=== PATIENT | male | born 1930 | race Caucasian/White ===

== ENCOUNTER 2016-12-22 15:55 | Emergency (ER) | payer MEDICARE ==
[~2016-12-22] VITALS: Ht 182.9 cm; Wt 117.7 kg
[~2016-12-22 15:55] MED LIST: ACET-171 PO; ALBU2.5V4 IH; ATEN25TA PO; DOCU-41 PO; HYDR-4003 PO; IPRA4AER IH; LISI-609 PO; NITR0.4T SL; NPH,100V11 SUBQ; QUET25TA73 PO; SIMV40TA5 PO; WARF5TAB7 PO
[2016-12-22 15:58] VITALS: BP 112/75; PULSE 65; RESP 22; O2SAT 97
--- NOTE | 2016-12-22 16:18 | ED.REPORT ---
HPI-General Illness Date of Service Dec 22, 2016 ED Provider: Dick Martinez MD An 86 year old male with a history of CAD, diabetes, hypertension, atrial flutter, DVT, COPD, and stroke on Warfarin presents to the ED accompanied by his family with decreased appetite and reduced liquid intake onset one week ago. Associated symptoms include malaise, generalized weakness, reduced urination, and lethargy. He had a bout of cold-like symptoms three weeks ago, which have mostly resolved. The patient denies fever, cough, vomiting, constipation, or pain currently. Nursing Notes Stated Complaint: DEHYDRATED, NOT EATING/DRINKING Chief Complaint: General Complaint Nursing Notes Reviewed: Yes Allergies: Coded Allergies: Penicillins (Verified Allergy, Severe, 10/17/15) doxycycline (Verified Allergy, Severe, 10/17/15) Scheduled Albuterol/Ipratropium (Combivent Respimat Inhal [place]) 120 Spr/4 Gm Inhaler 1 PUFF IH BID Atenolol (Atenolol) 25 Mg Tablet 12.5 MG PO DAILY Lisinopril (Zestril) 5 Mg Tablet 2.5 MG PO DAILY NPH, Human Insulin Isophane (HUMulin-N U100 Insulin Vial) 100 Unit/1 Ml Vial 28 UNIT SUBQ BID-INSULIN Simvastatin (Simvastatin) 40 Mg Tablet 40 MG PO HS Warfarin Sodium (Warfarin Sodium) 5 Mg Tablet 5 MG PO ,,,,,[place] Warfarin Sodium (Warfarin Sodium) 5 Mg Tablet 7.5 MG PO Friday Scheduled PRN Acetaminophen (Acetaminophen) 500 Mg Tablet 500 MG PO Q4H PRN PRN For Pain Albuterol Neb Soln (Albuterol Neb Soln) 2.5 Mg/3 Ml Vial.neb 2.5 MG IH Q4 PRN PRN For Shortness of Breath Docusate Sodium (Colace) 100 Mg Capsule 100-200 MG PO BID PRN PRN For Constipation Hydrocodone-Acetaminophen 5-325 mg (Hydrocodone-Acetaminophen 5-325 mg) 1 Each Tablet 1-2 EACH PO Q4 PRN PRN For Pain Nitroglycerin SL (Nitrostat) 0.4 Mg Tab.subl 0.4 MG SL Q5MIN PRN PRN For Chest Pain Quetiapine Fumarate (Quetiapine Fumarate) 25 Mg Tablet 0.5-1 TAB PO HS PRN PRN Insomnia General Time Seen by MD: 16:17 Chief Complaint Other (Decreased Appetite and Reduced Liquid Intake) Hx Obtained From: Patient, Daughter Sudden in Onset?: No Onset Occurred: 1 week ago Symptom Duration: Since onset Severity: Current: No pain currently Severity: Maximum: No pain Associated with: Reports: Weakness, Denies: Cough, Fever, Vomiting Pertinent Negative: Relieved by nothing Recent Healthcare: No recent doctor visit Past Medical History Past Medical History 1. Coronary artery disease. 2. Diabetes. 3. Hypertension. 4. Hyperlipidemia. 5. Excess weight. 6. Chronic bronchitis. 7. Hard of hearing. 8. 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 9. Left frontal lobe meningioma. 10. Atrial flutter with chronic warfarin anticoagulation. 11. History of left leg DVT in June 2013. 12. History of basal cell cancers of the face. 13. History of poor dentition. 14. COPD Past Surgical History Total right knee replacement in 2009. Three-vessel CABG in 2007 Laparoscopic cholecystectomy Prior cataract surgery. Reports: Angioplasty, CABG Family History Mother is ; of asthma and heart disease. Smoking History Former Smoker Social History Lives alone, has caregiver come in Alcohol Use: "Social" Drug Use: Denies drug use Ambulatory Status Wheelchair Review of Systems + decreased appetite, reduced liquid intake - pain Full Review of Systems Constitutional: Reports: Lethargy, Malaise, Weakness - generalized, Denies: Fever Respiratory: Denies: Non-productive cough GI: Denies: Constipation, Vomiting Male: Reports Urination decreased Complete sys rev & neg: except as marked. Physical Exam Vital Signs Vital Signs Date Time Temp Pulse Resp B/P Pulse Ox O2 Delivery O2 Flow Rate FiO2 12/22/16 18:36 36.9 85 22 110/29 100 Room Air 12/22/16 17:48 60 14 106/49 96 Room Air 12/22/16 17:18 35.8 12/22/16 15:58 36.5 65 22 112/75 97 Room Air Head / Eyes: Atraumatic, Normocephalic Respiratory: Breath sounds normal, Clear to auscultation, No respiratory distress Abdomen / GI: Soft, Non-tender Skin: Warm, Dry, No cyanosis Neurologic: Alert, Oriented Psychiatric: Mood/affect normal, Behavior normal, Normal thought content General/Constitutional: Awake, Alert ENT: Airway patent Mouth: Positive: Mucous membranes dry Cardiovascular: Heart rate NL, Regular rhythm, Heart sounds NL Lower Ext Edema: Positive: Bilateral 2+ (Baseline) Interpretation & Diagnostics Lab Results Interpretation Result Diagram: 12/22/16 1700 12/22/16 1700 Test 12/22/16 16:30 12/22/16 17:00 12/22/16 17:14 Urine Color Yellow (YELLOW) Urine Appearance Clear (CLEAR,HAZY) Urine pH 5.0 (5.0-8.0) Urine Specific [place] 1.032 (1.003-1.035) Urine Protein Negativemg/dL (NEG,TRACE) Urine Glucose (UA) Negativemg/dL (NEGATIVE) Urine Ketones Negativemg/dL (NEGATIVE) Urine Occult Blood Negative (NEGATIVE) Urine Nitrite Negative (NEGATIVE) Urine Bilirubin Negative (NEGATIVE) Urine Urobilinogen Normalmg/dL (NORMAL) Urine Leukocyte Esterase Negative (NEGATIVE) Urine RBC 0-2/hpf (0-2) Urine WBC 0-5/hpf (0-5) Urine Epithelial Cells Few/hpf (NONE-MOD) Urine Crystals None seen (NONE SEEN) Urine Bacteria Few/hpf (NONE-FEW) Urine Hyaline Casts None/lpf (NONE) Urine Granular Casts None seen (NONE SEEN) Urine Waxy Casts None seen (NONE SEEN) Urine Red Blood Cell Casts None seen (NONE SEEN) Urine White Blood Cell Casts None seen (NONE SEEN) Urine Mucus Present (None Seen) Urine Trichomonas None seen (NONE SEEN) Urine Yeast None (NONE SEEN) Urinalysis Comment None Urine Culture Reflexed Not indicated White Blood Count 5.9th/mm3 (3.8-10.1) Red Blood Count 4.98mil/mm3 (4.40-5.80) Hemoglobin 14.5g/dL (13.8-17.2) Hematocrit 43.2% (41.0-50.0) Mean Corpuscular Volume 86.7fL (81-100) Mean Corpuscular Hemoglobin 29.1pg (27.0-35.0) Mean Corpuscular Hemoglobin Concent 33.6% (32.0-37.0) Red Cell Distribution Width 14.4% (12.3-15.4) Platelet Count 150bil/L (150-400) Neutrophils (%) (Auto) 62.2% (40-74) Lymphocytes (%) (Auto) 27.0% (14-46) Monocytes (%) (Auto) 7.8% (4-12) Eosinophils (%) (Auto) 2.6% (0-5) Basophils (%) (Auto) 0.2% (0-3) Sodium Level 142mEq/L (134-144) Potassium Level 4.5mEq/L (3.5-5.2) Chloride Level 105mEq/L (97-108) Carbon Dioxide Level 22mmol/L (18-29) Blood Urea Nitrogen 15mg/dL (8-27) Creatinine 0.97mg/dL (0.76-1.27) Estimat Glomerular Filtration Rate 78mL/min (>59) Glucose Level 138mg/dL (60-99) Calcium Level 8.3mg/dL (8.5-10.1) Total Bilirubin 0.6mg/dL (0.0-1.2) Aspartate Amino Transf (AST/SGOT) 34U/L (0-50) Alanine Aminotransferase (ALT/SGPT) 21U/L (0-44) Alkaline Phosphatase 84U/L (25-160) Total Protein 6.6g/dL (6.4-8.4) Albumin 3.3g/dL (3.4-5.0) Hold Kirby Top Tube Received (Received) X-Ray Chest Interpretation Chest Xray Interpretation: IMPRESSION: No acute cardiopulmonary disease. Dictated by: Kevan Grullon M.D. on 12/22/2016 at 16:45 View: Portable, 1 view Interpretation / Wet Read by: Interpret - Radiologist Re-Eval/Medical Decision Source of Hx: Old records Time of Eval: 19:29 Patient Status: Condition improved Re-Evaluation/Progress Note: Discussed with patient and his family x-ray and lab results, diagnosis, and plan for discharge. Follow-up and return to the ER instructions given. Patient and his family agree with plan for care and all questions were addressed. Counseled Regarding: Diagnosis, Lab results, Need for follow-up, When/why to return to ED Discharge & Departure Primary Impression: Generalized weakness Additional Impression: Decreased appetite Disposition: Home Discharge Condition All VS Reviewed: Yes Condition: Stable Additional Instructions: Thank you for entrusting us with your care. Your laboratory tests and chest x-ray were normal. Call your primary care provider tomorrow morning for a follow-up appointment. Return to the ER with any new or worsening symptoms. Referrals: Robel Thao MD (PCP) [place] Attestation Portions of this note were transcribed by Mackenzie Sands. I, Dr. Martinez, personally performed the history, physical exam, and medical decision-making; I reviewed and confirmed the accuracy of the information in the transcribed note. Signed by: Brandee Horan, 12/22/2016, 19:34 copies to: Robel Thoa MD, Kirk H MD Dec 22, 2016 16:18 MACKENZIE SANDS Dec 22, 2016 16:26 MACKENZIE SANDS Dec 22, 2016 16:26
[2016-12-22] MEDS ORDERED: 0.9% Sodium Chloride 1,000 ML IV ONE (16:40)
--- NOTE | 2016-12-22 16:47 | DRSVH ---
PROCEDURE: X-RAY CHEST ONE VIEW, PORTABLE ([id number]) INDICATIONS: 86-year-old male with altered level of consciousness. TECHNIQUE: One view of the chest was acquired. COMPARISON: [facility], CR, XR CHEST 2VW, 10/02/2015, 16:48. [facility], C R, XR CHEST 1VW (PORTABLE), 09/27/2015, 22:37. [facility], CR, CHEST 2VW, 03/30/2015, 13 :25. FINDINGS: Surgical changes and devices: Patient is status post coronary artery bypass grafting. Lungs and pleura: No pleural effusions or pneumothorax. Lungs are clear. Mediastinum: Mediastinal contours appear normal. Heart size is normal. Bones and chest wall: No suspicious bony lesions. Overlying soft tissues appear unremarkable. IMPRESSION: No acute cardiopulmonary disease. Dictated by: Kevan Grullon M.D. on 12/22/2016 at 16:45 Approved by: Kevan Grullon M.D. on 12/22/2016 at 16:46
[2016-12-22 17:16] LABS: BASOPHILS % (AUTO) 0.2 % (0-3); EOSINOPHILS % (AUTO) 2.6 % (0-5); MONOCYTES % (AUTO) 7.8 % (4-12); Mean Corpuscular Hemoglobin 29.1 pg (27.0-35.0); Mean Corpuscular Volume 86.7 fL (81-100); NEUTROPHILS % (AUTO) 62.2 % (40-74); Platelet Count 150 bil/L (150-400)
[2016-12-22 17:48] VITALS: BP 106/49; PULSE 60; RESP 14; O2SAT 96
[2016-12-22 18:36] VITALS: BP 110/29; PULSE 85; RESP 22; O2SAT 100
[2016-12-22 19:00] LABS: APPEARANCE,URINE CLEAR (CLEAR,HAZY); COLOR,URINE YELLOW (YELLOW); OCCULT BLOOD,URINE NEGATIVE (NEGATIVE); UROBILINOGEN,URINE NORMAL (NORMAL)
== END 2016-12-22 19:46 | disposition home or self-care (01) ==
LOC: SED 15:55
DX: R53.1 Weakness (principal); R63.0 Anorexia; I25.10 Atherosclerotic heart disease of native coronary artery without angina pectoris; E11.9 Type 2 diabetes mellitus without complications; I10 Essential (primary) hypertension; E78.5 Hyperlipidemia, unspecified; I69.398 Other sequelae of cerebral infarction; J44.9 Chronic obstructive pulmonary disease, unspecified; I48.92 Unspecified atrial flutter; Z86.718 Personal history of other venous thrombosis and embolism; Z95.1 Presence of aortocoronary bypass graft; Z87.891 Personal history of nicotine dependence; Z79.4 Long term (current) use of insulin; Z79.01 Long term (current) use of anticoagulants; Z88.0 Allergy status to penicillin; Z88.1 Allergy status to other antibiotic agents
CPT/HCPCS: 36415; 71010; 80053; 81000; 85025; 96360; 99284; J7030

== ENCOUNTER 2017-06-19 13:10 | Inpatient (IN) | payer MEDICARE ==
[~2017-06-19] VITALS: Ht 182.9 cm; Wt 115.6 kg
[2017-06-19 13:12] VITALS: BP 139/72; PULSE 49; RESP 15; O2SAT 95
[2017-06-19 13:50] LABS: BASOPHILS % (AUTO) 0.2 % (0-3); EOSINOPHILS % (AUTO) 2.7 % (0-5); MONOCYTES % (AUTO) 7.3 % (4-12); Mean Corpuscular Hemoglobin 28.7 pg (27.0-35.0); Mean Corpuscular Volume 88.2 fL (81-100); NEUTROPHILS % (AUTO) 63.5 % (40-74); Platelet Count 142 bil/L (150-400)
[2017-06-19 14:02] LABS: TROPONIN T 0.034 ug/L (0.0-0.011)
[2017-06-19 14:05] LABS: INR 1.94 ratio
--- NOTE | 2017-06-19 14:09 | ED.REPORT ---
HPI-Chest Pain 40 and Over Date of Service Jun 19, 2017 ED Provider: Danay Jones MD Patient is a 86-year-old male with coronary artery disease, hypertension, diabetes mellitus, COPD, atrial fib/flutter with a previous DVT and stroke on warfarin who presents from his doctor's office after acute onset chest pain at rest this morning at approximately 11:15. He had left sided sharp pain that did not radiate to the left side of his chest he took 2 nitroglycerin tablets approximately 5 minutes apart after which his chest pain resolved. He had a similar episode approximately 2 months ago that also resolved with 2 nitroglycerin. He did not go to the emergency department at that time. He has had no associated shortness of breath, or headache. His caregiver reports that he has been quite tired over the last few months and that he has had some bowel incontinence however no recent weight loss. Patient's medications per caregiver report only consist of atenolol, warfarin, and furosemide. Nursing Notes Stated Complaint: CHEST PAIN Chief Complaint: Chest Pain Nursing Notes Reviewed: Yes Allergies: Coded Allergies: Penicillins (Verified Allergy, Severe, 10/17/15) doxycycline (Verified Allergy, Severe, 10/17/15) Scheduled Albuterol/Ipratropium (Combivent Respimat Inhal [place]) 120 Spr/4 Gm Inhaler 1 PUFF IH BID Atenolol (Atenolol) 25 Mg Tablet 12.5 MG PO DAILY Lisinopril (Zestril) 5 Mg Tablet 2.5 MG PO DAILY NPH, Human Insulin Isophane (HUMulin-N U100 Insulin Vial) 100 Unit/1 Ml Vial 28 UNIT SUBQ BID-INSULIN Simvastatin (Simvastatin) 40 Mg Tablet 40 MG PO HS Warfarin Sodium (Warfarin Sodium) 5 Mg Tablet 5 MG PO [place], [place], , , Sa Warfarin Sodium (Warfarin Sodium) 5 Mg Tablet 2.5 MG PO , Scheduled PRN Acetaminophen (Acetaminophen) 500 Mg Tablet 500 MG PO Q4H PRN PRN For Pain Albuterol Neb Soln (Albuterol Neb Soln) 2.5 Mg/3 Ml Vial.neb 2.5 MG IH Q4 PRN PRN For Shortness of Breath Docusate Sodium (Colace) 100 Mg Capsule 100-200 MG PO BID PRN PRN For Constipation Hydrocodone-Acetaminophen 5-325 mg (Hydrocodone-Acetaminophen 5-325 mg) 1 Each Tablet 1-2 EACH PO Q4 PRN PRN For Pain Nitroglycerin SL (Nitrostat) 0.4 Mg Tab.subl 0.4 MG SL Q5MIN PRN PRN For Chest Pain Quetiapine Fumarate (Quetiapine Fumarate) 25 Mg Tablet 0.5-1 TAB PO HS PRN PRN Insomnia General Time Seen by MD: 13:30 Transferred From: Private physician office (Robel Thao) Chief Complaint Chest pain Hx Obtained From: Patient, Flight Line Mechanic Arrived By: Walk-in Sudden in Onset?: Yes Onset Occurred: 1 - 4 hours ago Context of Onset: At rest Symptom Duration: 1 - 15 minutes (Resolved with 2 doses SL Nitroglycerine) Risk Factors Well's Criteria for PE Well's PE Score: 0-2 pts (low risk 3.6%) Past Medical History Past Medical History 1. Coronary artery disease. 2. Diabetes. 3. Hypertension. 4. Hyperlipidemia. 5. Excess weight. 6. Chronic bronchitis. 7. Hard of hearing. 8. 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 9. Left frontal lobe meningioma. 10. Atrial flutter with chronic warfarin anticoagulation. 11. History of left leg DVT in June 2013. 12. History of basal cell cancers of the face. 13. History of poor dentition. 14. COPD Past Surgical History Total right knee replacement in 2009. Three-vessel CABG in 2007 Laparoscopic cholecystectomy Prior cataract surgery. Reports: Angioplasty Family History Mother is ; of asthma and heart disease. Smoking History Former Smoker Social History Has caregiver come in Alcohol Use: "Social" Drug Use: Denies drug use Ambulatory Status Wheelchair Review of Systems A comprehensive review of systems was conducted with the patient and found to be negative except as above in the History of Present Illness. Physical Exam Initial Vital Signs Vital Signs (First) Date Time Temp Pulse Resp B/P Pulse Ox O2 Delivery O2 Flow Rate FiO2 06/19/17 13:12 36 49 15 139/72 95 Room Air Initial VS: Reviewed, Vital signs abnormal (bradycardic) Head / Eyes: Atraumatic, Normocephalic ENT: Mucous membranes moist Neck: Supple Lymphatic: No lymphadenopathy Extremities: No swelling (compression stocking on left leg), No tenderness Skin: Warm, Dry, No cyanosis Neurologic: Alert, Oriented, Nonfocal Psychiatric: Mood/affect normal, Behavior normal, Normal thought content General/Constitutional: Awake, Alert, No acute distress, Well developed Respiratory / Chest: Breath sounds NL, Breath sounds = bilat, No respiratory distress, No rales, No rhonchi, No wheezing, No chest tenderness Cardiovascular: No murmurs Heart Rate / Rhythm: Positive: Bradycardia Abdomen: Atraumatic, Soft, Non-tender, No guarding, No rebound Interpretation & Diagnostics Lab Results Interpretation Result Diagram: 06/20/17 0530 06/20/17 0530 Test 06/19/17 13:33 Prothrombin Time 21.0sec (8.1-12.5) Prothromb Time International Ratio 1.94ratio Magnesium Level 2.0mg/dL (1.6-2.6) Total Bilirubin 0.4mg/dL (0.0-1.2) Aspartate Amino Transf (AST/SGOT) 19U/L (0-50) Alanine Aminotransferase (ALT/SGPT) 12U/L (0-44) Alkaline Phosphatase 111U/L (25-160) Total Protein 7.4g/dL (6.4-8.4) Albumin 3.8g/dL (3.4-5.0) Lab Results Interpretation: Troponin elevated to 0.034 ECG Interpretation ECG Interpretation: Atrial fibrillation at a rate of [address] changes Similar to EKG from October 17, 2015. Time: 13:23 X-Ray Chest Interpretation Chest Xray Interpretation: Persistent small bilateral pleural effusions with medial right basilar atelectasis or consolidation View: Portable Interpretation / Wet Read by: Interpret - Radiologist Re-Eval/Medical Decision Med Decision/Clinical Course Patient is a 86-year-old male with coronary artery disease, hypertension, diabetes mellitus, COPD, atrial fib/flutter with a previous DVT and stroke on warfarin who presents from his doctor's office after acute onset chest pain at rest this morning at approximately 11:15. His chest pain resolved with 2 doses of nitroglycerin and has not returned. EKG shows atrial fibrillation at a rate of 48, otherwise no ST changes and is grossly unchanged from ECG a year and a half ago. Laboratory evaluation reveals elevated troponin at 0.036. This is historically the highest he has been. Patient's lab results and need for admission were discussed with patient and caregiver. Cardiology was consulted and recommended heparin drip and trending of troponin. Patient is DNR/DNI per discussion today. Consultation #1: Referral / Consult Name: Renetta Rayo MD Consulted With: Cardiology Requested Call at: 14:37 Call Returned at: 14:42 [place]: Will see patient, Agrees with eval, Agrees with plan Note: Recommend starting heparin drip and trending troponin. Consultation #2: Referral / Consult Name: Ray Gandhi MD Consulted With: Hospitalist Requested Call at: 14:45 Call Returned at: 14:50 [place]: Will see patient, Agrees with eval, Agrees with plan, Accepts admit Counseled Regarding: Diagnosis, Lab results, Need for admission Discharge & Departure Shift Change Sign-Out Response to Therapy: Unchanged Primary Impression: NSTEMI (non-ST elevated myocardial infarction) Disposition: ADMITTED TO HOSPITAL Discharge Condition All VS Reviewed: Yes Condition: Stable Referrals: Robel Thao MD (PCP) Attending Statement Patient seen and examined with Dr. Schmitt Episode of chest pain this morning resolved with 2 nitroglycerin. History of atherosclerotic disease and previous interventions. Initial troponin is positive. No acute ST changes on his EKG which is showing baseline A. fib with a slow rate. INR is 2. Consultation with cardiology recommended starting heparin drip. Will be admitted for additional evaluation, primary care physician is notified of admit Agree documentation and exam as above copies to: Robel Thao MD, Erika R DO Jun 19, 2017 14:09 Danay Jones MD Jun 20, 2017 09:05 (6.4-8.4) Albumin 3.8g/dL (3.4-5.0) Lab Results Interpretation: Troponin elevated to 0.034 ECG Interpretation ECG Interpretation: Atrial fibrillation at a rate of [address] changes Similar to EKG from October 17, 2015. Time: 13:23 X-Ray Chest Interpretation Chest Xray Interpretation: Persistent small bilateral pleural effusions with medial right basilar atelectasis or consolidation View: Portable Interpretation / Wet Read by: Interpret - Radiologist Re-Eval/Medical Decision Med Decision/Clinical Course Patient is a 86-year-old male with coronary artery disease, hypertension, diabetes mellitus, COPD, atrial fib/flutter with a previous DVT and stroke on warfarin who presents from his doctor's office after acute onset chest pain at rest this morning at approximately 11:15. His chest pain resolved with 2 doses of nitroglycerin and has not returned. EKG shows atrial fibrillation at a rate of 48, otherwise no ST changes and is grossly unchanged from ECG a year and a half ago. Laboratory evaluation reveals elevated troponin at 0.036. This is historically the highest he has been. Patient's lab results and need for admission were discussed with patient and caregiver. Cardiology was consulted and recommended heparin drip and trending of troponin. Patient is DNR/DNI per discussion today. Consultation #1: Referral / Consult Name: Renetta Rayo MD Consulted With: Cardiology Requested Call at: 14:37 Call Returned at: 14:42 [place]: Will see patient, Agrees with eval, Agrees with plan Note: Recommend starting heparin drip and trending troponin. Consultation #2: Referral / Consult Name: Ray Gandhi MD Consulted With: Hospitalist Requested Call at: 14:45 Call Returned at: 14:50 [place]: Will see patient, Agrees with eval, Agrees with plan, Accepts admit Counseled Regarding: Diagnosis, Lab results, Need for admission Discharge & Departure Shift Change Sign-Out Response to Therapy: Unchanged Primary Impression: NSTEMI (non-ST elevated myocardial infarction) Disposition: ADMITTED TO HOSPITAL Discharge Condition All VS Reviewed: Yes Condition: Stable Referrals: Robel Thao MD (PCP) copies to: Robel Thao MD, Erika R DO Jun 19, 2017 14:09
--- NOTE | 2017-06-19 14:42 | DRSVH ---
PROCEDURE: X-RAY CHEST ONE VIEW, PORTABLE ([id number]) INDICATIONS: Chest pain TECHNIQUE: One view of the chest was acquired. COMPARISON: [facility], CR, XR CHEST 1VW (PORTABLE), 12/22/2016, 16:30. FINDINGS: Surgical changes and devices: Postsurgical changes are redemonstrated in the mediastinum. Lungs and pleura: There are small bilateral pleural effusions with medial right basilar compressive a telectasis or consolidation. Mediastinum: Mediastinal contours appear unchanged. Heart size is at upper limits of normal. Bones and chest wall: No suspicious bony lesions. Overlying soft tissues appear unremarkable. IMPRESSION: 1. Persistent small bilateral pleural effusions with medial right basilar atelectasis or consolidati on. Dictated by: Chaka Jones M.D. on 06/19/2017 at 14:39 Approved by: Chaka Jones M.D. on 06/19/2017 at 14:41
[2017-06-19] MEDS ORDERED: Heparin 5,000 Unit/mL Inj IVPUSH ONE (14:55)
[2017-06-19] MEDS ORDERED: Heparin 25K Unit/500mL 0.45 NS 25,000 UNIT in IV Premix 1 EACH IV ONE (14:55)
[2017-06-19 15:30] VITALS: BP 136/73; PULSE 61; RESP 20; O2SAT 95
[2017-06-19] MEDS ORDERED: Polyethylene Glycol (PEG) 17 Gm Powder PO PRN (15:30)
[2017-06-19] MEDS ORDERED: Alum-Mag Hydrox-Simeth 30 mL Suspension PO PRN (15:30)
[2017-06-19] MEDS ORDERED: Ondansetron 2 mg/mL 2 mL Inj IVPUSH PRN (15:30)
--- NOTE | 2017-06-19 16:19 | PCM.HPMED ---
Subjective Date of Service Jun 19, 2017 Primary Provider: Admitting Physician: Ray Gandhi MD Primary Care Physician: Robel Thao MD Attending Physician: Ray Gandhi MD Chief Complaint: Chest pain History of Present Illness: From ER, EMR and patient: Patient is a 86-year-old male with coronary artery disease, hypertension, diabetes mellitus, COPD, atrial fib/flutter with a previous DVT and stroke on warfarin who presents from his doctor's office after acute onset chest pain at rest this morning at approximately 11:15. He had left sided sharp pain that did not radiate to the left side of his chest he took 2 nitroglycerin tablets approximately 5 minutes apart after which his chest pain resolved. He had a similar episode approximately 2 months ago that also resolved with 2 nitroglycerin. He did not go to the emergency department at that time. He has had no associated shortness of breath, or headache. His caregiver reports that he has been quite tired over the last few months and that he has had some bowel incontinence however no recent weight loss. When asked about previous history of CAD, he does not remember every having a cardiac cath. Denies any other symptoms at this time. . Allergies Coded Allergies: Penicillins (Verified Allergy, Severe, 10/17/15) doxycycline (Verified Allergy, Severe, 10/17/15) Constitutional: No: Chills, Fever, Malaise, Other, Sweats, Weakness Cardiovascular: Reports: Chest Pain Respiratory: Denies: Cough, Hemoptysis, Other, Pleuritic Chest Pain, SOB with Exertion, Shortness of Breath, Sputum, Wheezing Gastrointestinal: Denies: Abdominal Pain, Change in Appetite, Constipation, Diarrhea, Heartburn, Hematochezia, Melena, Nausea, Other, Use of Laxatives, Vomiting Genitourinary: Denies: Anuria, Change in Frequency, Dysuria, Hematuria, Incontinence, Nocturia, Other, Retention Musculoskeletal: Denies: Back Pain, Deformity, Limitation of Function, Neck Pain, Other, Redness, Shoulder Pain, Swelling Skin: Denies: Bruising, Dry or Flakiness, Jaundice, Lesions, Other, Rash, Scars , Ulcers Neurological: Denies: Change in Speech, Confusion, Dizziness, Dyskinesia, Hyper Reflexia, Incoordination, Numbness, Other, Seizures, Somnolence, Tremors, Weakness Psychologic: Denies: Agitation, Disorientation, Excitation, Giddiness, Hostile , Insomnia, Instability, Laquita, Nervousness, Night Terrors, Other, Perseveration , Phobia, Sexual Disturbances Endocrine: Denies: Change in Appitite, Diaphoresis, Intolerent to Heat/Cold, Polydipsea, Polyuria PMH 1. Coronary artery disease. 2. Diabetes. 3. Hypertension. 4. Hyperlipidemia. 5. Excess weight. 6. Chronic bronchitis. 7. Hard of hearing. 8. 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 9. Left frontal lobe meningioma. 10. Atrial flutter with chronic warfarin anticoagulation. 11. History of left leg DVT in June 2013. 12. History of basal cell cancers of the face. 13. History of poor dentition. 14. COPD Surgical History Total right knee replacement in 2009. Three-vessel CABG in 2007 Laparoscopic cholecystectomy Prior cataract surgery. Reports: Angioplasty Social History Hx Alcohol Use: No Hx Substance Use: No Hx Tobacco Use: Yes Smoking Status: Former Smoker Exam Vital Signs Vital Sign - Last Date Time Temp Pulse Resp B/P Pulse Ox O2 Delivery O2 Flow Rate FiO2 06/19/17 13:12 36 49 15 139/72 95 Room Air Lab and Diagnostics Result Diagram: 06/19/17 1333 06/19/17 1333 Assessment & Plan Chest pain - concerns for NSTEMI - will trend trops - on heparin, EKG without any significant changes - Cardiology on consult, appreciate recs Afib /Aflutter - on warfarin at home - INR 1.9 here - on heparin drip, will hold warfarin for now Diabetes - on insulin at home - will continue home insulin with sliding scale Chronic Bronchitis (COPD) - as per mesh cutter, gets neb treatment 1 -2 times a day, and uses escape inhaler once a day - continue nebs and albuterol inhaler HTN - as per caregiver, he usually runs low at home - will monitor bp here, and adjust medications accordingly Chronic problems Hyperlipidemia. Excess weight. Hard of hearing. 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 Left frontal lobe meningioma. History of left leg DVT in June 2013. History of basal cell cancers of the face. History of poor dentition. Pain Evaluation: Adequate Pain Control VTE Prophylaxis: Other (on heparin drip ) Time spent 55 mins Attending Statement Admitted to in patient service with expected length of stay greater than 2 days , secondary to severity of presenting symptoms, treatment plan, complexity of clinical work up, and risk of adverse events. Ray Gandhi MD Jun 19, 2017 16:19
[2017-06-19 16:48] VITALS: BP 136/73; PULSE 61; RESP 20; O2SAT 95
[2017-06-19 17:10] VITALS: PULSE 61
[2017-06-19] MEDS ORDERED: Glucose 40% Oral Gel 15 Gm Tube PO PRN (17:10)
[2017-06-19 17:30] VITALS: BP 111/62; PULSE 60; RESP 22; O2SAT 97
[2017-06-19] MEDS: Insulin LISPRO 300 Unit/3 mL Inj SUBQ SCH ×2 (17:30→22:00)
[2017-06-19] MEDS ORDERED: HYDROcodone-APAP 5-325 mg Tablet PO PRN (17:40)
[2017-06-19] MEDS ORDERED: Heparin 25K Unit/500mL 0.45 NS 25,000 UNIT in IV Premix 1 EACH IV SCH (17:45)
[2017-06-19] MEDS ORDERED: Heparin 5,000 Unit/mL Inj IVPUSH PRN (17:45)
--- NOTE | 2017-06-19 17:45 | NUR ---
ADMIT TO [facility] [place] Report received from Katrin Quinn RN in ED. Pt brought onto floor around 1700 via personal WC. Pt 2P max assist to bed. Partially able to bear weight but very weak. Continuing 2P max assist with bedrest for most and Q2H turns/heels floated. Admission interventions mostly completed, pt not good historian, and animal caretaker supervisor able to answer a few questions. Next shift to F/U when family is in the room for MED REC and Allergies. Heparin drip continuing to run, started in ED. Board updated, pt instructed about plan of care. Pt denies pain and SOB but visibly apparent pt is SOB at rest. Does report using CPAP at home. Will place CPOX for sleeping. Pt has recent falls last week, bed alarm on, urinal in room for needs. Addendum: 06/19/17 at 1850 by MADHAVI ESPINAL RN MED REC verified with family. Family reports to have several allergies to antibiotics. Leaving Allergies as listed.
[2017-06-19] MEDS ORDERED: Albuterol 2.5 mg/3 mL Inhalation Solution NEB PRN (18:46)
[2017-06-19 20:14] VITALS: BP 116/68; PULSE 74; RESP 20; O2SAT 96
[2017-06-19] MEDS ORDERED: Albuterol-Ipratropium 3 mL Inhalation Solution NEB SCH (20:30)
[2017-06-19] MEDS ORDERED: Insulin Human NPH 100 Unit/mL 3 mL Inj SUBQ SCH (21:00)
[2017-06-20] VITALS (9 sets, daily range): BP systolic 116–124; BP diastolic 72–85; PULSE 57–74; RESP 16–22; O2SAT 95–97
--- NOTE | 2017-06-20 00:01 | NUR ---
Insulin NPH Pt took Insulin NPH 28 unit BID at home, ordered continue by admit , Pharmacist has questions about NPH order that she wanted to talk with night hospitalist Dr. Wade. Phamacist and RN both paged . Dr. Wade called back and talked with pharmacy and stated she will pass to day hospitalist to take care of it (per pharmacy note under NPH order).
[2017-06-20 04:53] LABS: APPEARANCE,URINE CLEAR (CLEAR,HAZY); COLOR,URINE YELLOW (YELLOW); OCCULT BLOOD,URINE NEGATIVE (NEGATIVE); UROBILINOGEN,URINE NORMAL (NORMAL)
[2017-06-20 05:48] LABS: BASOPHILS % (AUTO) 0.2 % (0-3); EOSINOPHILS % (AUTO) 3.5 % (0-5); MONOCYTES % (AUTO) 9.3 % (4-12); Mean Corpuscular Hemoglobin 28.9 pg (27.0-35.0); Mean Corpuscular Volume 87.7 fL (81-100); NEUTROPHILS % (AUTO) 54.6 % (40-74); Platelet Count 117 bil/L (150-400)
--- NOTE | 2017-06-20 07:26 | NUR ---
Uneventful Night Pt denies any pain or chest pressure,nausea,fever, chills,some SOB with turning. VSS. Heparin drip running, no active bleeding noted. Alert and oriented. Pt kept NPO after MN for possible heart cath or Stress test per day shift report. Last caffeine around 0800 06/19/2017 per pt.
[2017-06-20] MEDS: Insulin LISPRO 300 Unit/3 mL Inj SUBQ SCH ×4 (08:00→22:00)
--- NOTE | 2017-06-20 08:22 | PCM.PNMED ---
Subjective Date of Service Jun 20, 2017 Subjective Patient seen and examined. He says he doing fine. No chest pain. Vitals stable. Exam Vital Signs Vital Sign - Last Date Time Temp Pulse Resp B/P Pulse Ox O2 Delivery O2 Flow Rate FiO2 06/20/17 04:54 61 06/20/17 04:49 36.7 22 116/72 97 Room Air Intake and Output 06/19/17 06/19/17 06/20/17 Cumulative From/Thru 15:00 23:00 07:00 06/19/17 13:12 - 06/20/17 06:36 Intake Total 209 ml 209 ml Output Total 300 ml 300 ml Balance -91 ml -91 ml Intake Oral 0 ml 0 ml IV Total 209 ml 209 ml Output Urine Total 300 ml 300 ml # Voids 1 1 Exam Head / Eyes: Atraumatic, Normocephalic Extremities: Swelling L > R (compression stocking on left leg), No tenderness Skin: Warm, Dry, No cyanosis Neurologic: Alert, Oriented, Nonfocal Psychiatric: Mood/affect normal, Behavior normal, Normal thought content Respiratory / Chest: Breath sounds NL, Breath sounds = bilat, No respiratory distress, No rales, No rhonchi, No wheezing, No chest tenderness Cardiovascular: No murmurs, irregular beat Heart Rate / Rhythm: Positive: Bradycardia Abdomen: Atraumatic, Soft, Non-tender, No guarding, No rebound Lab and Diagnostics Result Diagram: 06/20/17 0530 06/20/17 0530 Assessment & Plan Chest pain - concerns for NSTEMI vs PE - troponins stabilized - on heparin, EKG without any significant changes - Cardiology on consult, recs: CTPE, lasix 40 BID, Metoprolol XL, Aspirin, Statin, restart coumadin to optimize INR 2-3 , medical management, discussed with dr. Castrejon , appreciate recs Afib /Aflutter - on warfarin at home - INR 1.9 here - on heparin drip, warfarin restarted Lower extremity swelling - L > R - compression stockings in place - no pain, worsens when patient sits for long time - Lasix + anticoagulation Diabetes - on insulin at home - will continue home insulin with sliding scale - hold morning dose today as patient's glucose low and he is npo Chronic Bronchitis (COPD) - as per aquatic biologist, gets neb treatment 1 -2 times a day, and uses escape inhaler once a day - continue nebs and albuterol inhaler HTN - as per caregiver, he usually runs low at home - will monitor bp here, and adjust medications accordingly Chronic problems Hyperlipidemia. Excess weight. Hard of hearing. 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 Left frontal lobe meningioma. History of left leg DVT in June 2013. History of basal cell cancers of the face. History of poor dentition VTE Prophylaxis: Other (on heparin drip ) VTE Mechanical Devices: Intermittant Pneumatic CD, Anti-Embolic stockings Time spent 35 mins Ray Gandhi MD Jun 20, 2017 08:22 Ray Gandhi MD Jun 20, 2017 08:22
--- NOTE | 2017-06-20 11:37 | DRSVH ---
[facility] [address] [place] [address] Echocardiogram Report Name: ROBINSON ROSAS te: 06/20/2017 Height: 72 in Hospital Exam Location: [facility] Weight: 268 lb Gender: Male BSA: 2.4 m2 : 1930 Age: 86 yrs BP: 116/72 mmHg Reason For Study: Chest pain History: CAD Ordering Physician: [facility] Performed By: Joyce Bobo Referring Physician: Dr. Robel Thao Interpretation Summary The left ventricle is normal in size. The ejection fraction is estimated to be 60-65%. The right ventricle is mildly dilated. Right ventricular systolic function is moderate to severely reduced.Right ventricular systolic function has decreased since previous exam. There is mild to moderate tricuspid regurgitation. Compared to the prior echo exam, there has been an increase in TR severity. The right ventricular systolic pressure is estimated at 46 mmHg assuming a right atrial pressure of 15 mm Hg. Compared to the prior echo exam, there has been an increase in the severity of pulmonary hypertension. There is mild to moderate mitral regurgitation. Compared to the prior echo study, there has been an increase in the severity of mitral regurgitation. The aortic valve is not well visualized. Leaflet mobility is severely reduced. The peak aortic velocity is 1.5 m/sec. The peak aortic velocity on the previous exam was 1.37 m/sec (The peak AV velocity and mean gradient does not support severe however morphologically aortic valve cusps appears to have significantly reduced mobility). Consider ELA for better evaluation of AV. Procedure: A two-dimensional transthoracic echocardiogram with color flow and Doppler was performed. The study quality was technically adequate. A contrast injection of Definity was performed to improve assessment of LV function. Comparison is made with the echocardiogram of 07/22/2014. The patient was in atrial fibrillation with heart rates between 47-68 bpm during the exam. Left Ventricle: There is moderate concentric left ventricular hypertrophy. The left ventricle is normal in size. Proximal septal thickening is noted. There is no echo evidence for significant left ventricular outflow tract obstruction. There is no thrombus. The ejection fraction is estimated to be 60-65%. There is a mild dyssynchronous contraction pattern, consistent with a conduction abnormality. Diastolic function could not be accurately assessed due to atrial fibrillation. Right Ventricle: The right ventricle is not well visualized. The right ventricle is mildly dilated. Right ventricular systolic function is moderate to severely reduced. Right ventricular systolic function has decreased since previous exam. Atria: The left atrium is severely dilated. The left atrium has mildly increased in size since the prior echo exam. The right atrium is moderately dilated. The right atrium has mildly increased in size since the prior echo exam. There is no Doppler evidence for an interatrial shunt. Mitral Valve: There is mild mitral annular calcification. The mitral valve leaflets are mildly calcified. There is mild to moderate mitral regurgitation. PISA could not be reliably performed due to 'poor color doppler quality'. Compared to the prior echo study, there has been an increase in the severity of mitral regurgitation. Aortic Valve: The aortic valve is not well visualized. There is discrete nodular thickening of the non- coronary cusp. The aortic valve is moderately calcified. Leaflet mobility is severely reduced. The peak aortic velocity is 1.5 m/sec. The aortic valve mean gradient is 4.9 mmHg. The peak aortic velocity on the previous exam was 1.37 m/sec. There is trace aortic regurgitation. Tricuspid Valve: The tricuspid valve leaflets are thin and pliable. There is mild to moderate tricuspid regurgitation. The right ventricular systolic pressure is estimated at 46 mmHg assuming a right atrial pressure of 15 mm Hg. Compared to the prior echo exam, there has been an increase in TR severity. Compared to the prior echo exam, there has been an increase in the severity of pulmonary hypertension. Pulmonic Valve: The pulmonic valve is not well visualized. Great Vessels: The aortic root is normal size. The ascending aorta could not be visualized. The IVC is dilated (diameter is greater than 2.1 cm) and it collapses less than 50% with a sniff. This suggests a high right atrial pressure of 15 mm Hg. Systolic flow reversal noted in the hepatic veins. Pericardium/ Pleura There is no pericardial effusion. MMode/2D Measurements & Calculations LVIDd: 4.5 cm RA long axis LVOT diam LVIDs: 3.1 cm LA A2 area: 30.7 cm FS: 31.4 % LA A4 area: 31.8 cm RA area AoV Opening EPSS: 0.48 cm LA length (vol): 7.1 cm IVSd: 1.9 cm LA vol: 117.5 ml : 28.9 cm Ao root diam LVPWd: 1.4 cm LA vol index RA vol : 109.ml Aortic Jxn RA : 3.2 cm IVC diam: 2.6 cm : 45.3 mm2 LV huizar. diameter/BSA LV sys. diameter/BSA RVD1 (basal) RVD2 (mid) (cm/m^2): 1.8 (cm/m^2): 1.3 : 2.7 cm TAPSE: 0.86 cm Doppler Measurements & Calculations Ao V2 max: 152.1 cm/secMV E max jasmeet Med Peak E' Jasmeet TR max jasmeet Ao max P.3 mmHg : 90.7 cm/sec : 275.9 cm/sec Ao mean P.9 mmHg MV P1/2t E/E' med: 23.9 TR max PG LVOT Max Jasmeet : 53.2 msec : 30.5 mmHg : 59.7 cm/sec PA V2 max SCOTT(I,D): 2.4 cm : 69.2 cm/sec sev ratio: 0.48 PA mean PG : 0.73 mmHg PA Accel Time : 0.09 sec MV P1/2t max jasmeet Ao V2 mean LV V1 max PG PA V2 mean : 104.1 cm/sec : 38.6 cm/sec MVA(P1/2t): 4.1 cm2 Ao V2 VTI: 34.0 cmLV V1 VTI SCOTT(V,D): 2.0 cm2 : 16.3 cm SCOTT indexed to BSA (cm^2/m^2): 1.00 Reading Physician:CRISTAL
[2017-06-20 14:47] LABS: INR 2.18 ratio
--- NOTE | 2017-06-20 15:09 | PCM.CONPHA ---
Subjective Date of Service: Jun 20, 2017 Chest pain Reason for Pharmacy Consult: Anticoagulation Management Objective Vital Signs Date Time Temp Pulse Resp B/P Pulse Ox O2 Delivery O2 Flow Rate FiO2 06/20/17 14:21 36.9 72 18 118/76 97 Room Air 06/20/17 11:23 65 20 95 Room Air 06/20/17 10:10 36.5 65 20 122/85 95 Room Air 06/20/17 08:00 58 06/20/17 04:54 61 06/20/17 04:49 36.7 57 22 116/72 97 Room Air 06/20/17 00:19 36.3 58 22 124/78 97 Room Air 06/19/17 20:14 36.2 74 20 116/68 96 Room Air 06/19/17 17:30 36.3 60 22 111/62 97 Room Air 06/19/17 17:10 61 06/19/17 16:48 36 61 20 136/73 95 Room Air 06/19/17 15:30 61 20 136/73 95 Room Air Weight (Kilograms): 121.400 Height (Feet): 6 Height (Inches): 0.00 Test 06/19/17 13:33 06/19/17 18:22 06/20/17 04:35 06/20/17 05:30 Magnesium Level 2.0mg/dL (1.6-2.6) Total Bilirubin 0.4mg/dL (0.0-1.2) Aspartate Amino Transf (AST/SGOT) 19U/L (0-50) Alanine Aminotransferase (ALT/SGPT) 12U/L (0-44) Alkaline Phosphatase 111U/L (25-160) Total Protein 7.4g/dL (6.4-8.4) Albumin 3.8g/dL (3.4-5.0) Hold Urine Received (Received) Urine Color Yellow (YELLOW) Urine Appearance Clear (CLEAR,HAZY) Urine pH 5.0 (5.0-8.0) Urine Specific Repton 1.010 (1.003-1.035) Urine Protein Negativemg/dL (NEG,TRACE) Urine Glucose (UA) Negativemg/dL (NEGATIVE) Urine Ketones Negativemg/dL (NEGATIVE) Urine Occult Blood Negative (NEGATIVE) Urine Nitrite Negative (NEGATIVE) Urine Bilirubin Negative (NEGATIVE) Urine Urobilinogen Normalmg/dL (NORMAL) Urine Leukocyte Esterase Negative (NEGATIVE) Urine RBC 0-2/hpf (0-2) Urine WBC 0-5/hpf (0-5) Urine Epithelial Cells Occasional/hpf (NONE-MOD) Urine Crystals None seen (NONE SEEN) Urine Bacteria None/hpf (NONE-FEW) Urine Hyaline Casts None/lpf (NONE) Urine Granular Casts None seen (NONE SEEN) Urine Waxy Casts None seen (NONE SEEN) Urine Red Blood Cell Casts None seen (NONE SEEN) Urine White Blood Cell Casts None seen (NONE SEEN) Urine Mucus None seen (None Seen) Urine Trichomonas None seen (NONE SEEN) Urine Yeast None (NONE SEEN) Urinalysis Comment None Urine Culture Reflexed Not indicated White Blood Count 5.4th/mm3 (3.8-10.1) Red Blood Count 4.39mil/mm3 (4.40-5.80) Hemoglobin 12.7g/dL (13.8-17.2) Hematocrit 38.5% (41.0-50.0) Mean Corpuscular Volume 87.7fL (81-100) Mean Corpuscular Hemoglobin 28.9pg (27.0-35.0) Mean Corpuscular Hemoglobin Concent 33.0% (32.0-37.0) Red Cell Distribution Width 14.1% (12.3-15.4) Platelet Count 117bil/L (150-400) Neutrophils (%) (Auto) 54.6% (40-74) Lymphocytes (%) (Auto) 32.2% (14-46) Monocytes (%) (Auto) 9.3% (4-12) Eosinophils (%) (Auto) 3.5% (0-5) Basophils (%) (Auto) 0.2% (0-3) Sodium Level 143mEq/L (134-144) Potassium Level 4.0mEq/L (3.5-5.2) Chloride Level 104mEq/L (97-108) Carbon Dioxide Level 22mmol/L (18-29) Blood Urea Nitrogen 25mg/dL (8-27) Creatinine 1.12mg/dL (0.76-1.27) Estimat Glomerular Filtration Rate 66mL/min (>59) Glucose Level 123mg/dL (60-99) Calcium Level 8.0mg/dL (8.5-10.1) Triglycerides Level 95mg/dL (0-149) Cholesterol Level 166mg/dL (100-199) LDL Cholesterol, Calculated 112.000mg/dL (0-99) VLDL Cholesterol 19.000mg/dL HDL Cholesterol 35mg/dL (>39) Cholesterol/HDL Ratio 4.74 (0.0-4.4) Test 06/20/17 09:26 06/20/17 12:25 06/20/17 14:25 Activated Partial Thromboplast Time 67.5sec (22.8-33.0) Troponin T 0.032ug/L (0.0-0.011) Prothrombin Time 23.7sec (8.1-12.5) Prothromb Time International Ratio 2.18ratio Assessment/Plan Assessment/Plan Warfarin management per pharmacy Indication: atrial fibrillation, hx of afib INR goal: 2-3 Home warfarin dose: 2.5 mg /Fri, 5 mg all other days of the week. Pertinent info: - Patient is therapeutically anticoagulated on heparin drip. - Per med rec, patient received warfarin yesterday prior to admission. - INR was 1.94 on admission (06/19/17) but has trended up to 2.18 today. INR is therapeutic today and trending up. Will continue home dose. Give warfarin 2.5 mg PO one time this evening MD was paged regarding therapeutic INR -- MD has ordered for heparin to be discontinued. Pharmacy to continue to manage and dose warfarin daily. Thank you, Sha Trinh Pharmacist Sha Trinh Jun 20, 2017 15:09
--- NOTE | 2017-06-20 16:32 | CONS ---
[address] [address] CONSULTATION REPORT PATIENT: ROBINSON ROSAS : 1930 MR#: [id number] ADMIT: 06/19/2017 JOB ID: [id number] DATE OF SERVICE: 06/20/2017 REASON FOR CARDIOLOGY CONSULT: For the evaluation of chest pain. CHIEF COMPLAINT: Chest pain. PRESENT HISTORY: This 86-year-old, pleasant, male, who is almost bedridden, needs constant help for day-to-day activities, who has a history of known coronary artery disease, status post three-vessel bypass surgery in January [address] Saxena, (MAS graft to LAD, SVG graft to OM, as well as PDA) , who saw Dr. Park in 2009, history of chronic flutter/fib, on chronic anticoagulation, history of left leg DVT in June 2017, underlying essential hypertension, hyperlipidemia, obesity, diabetes mellitus, hard of hearing, history of CVA and residual left-sided weakness in 2011, left frontal lobe meningioma, COPD, chronic wheezing, got admitted because of above-mentioned chief complaint. The patient is kind of poor historian. I talked to the patient's as well as caregiver. Yesterday, about 11:15, he complained of chest pain. It was not very intense. It was sharp in nature. It was on the left side. No radiation. The patient was given total of two nitroglycerin and chest pain got better in 5 minutes. The patient got admitted to the hospital. At present, he denies any recurrence of chest pain. He has a chronic wheezing. It is not getting worse. No fever, chills, or new stroke-like symptoms. He underwent echocardiogram today which revealed normal size left ventricle with LV ejection fraction 60% to 65%. No obvious focal wall motion abnormality. There was dyssynchronous contraction pattern. Right ventricle was mildly dilated. However, right ventricular function appears to be moderate to severely reduced. Pulmonary artery systolic pressure was about 46 mmHg. There was [id number] MR and [id number] TR. The aortic valve does not appear to be critical when we repeated the echocardiogram with careful evaluation of the aortic valve. The peak aortic valve velocity was 1.37 m/sec. PAST MEDICAL HISTORY: History of CAD with triple vessel disease, status post triple vessel bypass surgery in January 2008 with MAS graft to LAD, SVG graft to OM, PDA, chronic atrial flutter fib, on chronic anticoagulation, diabetes mellitus, hypertension, hyperlipidemia, obesity, history of left leg DVT in June 2013, COPD, history of basal cell cancers at the face, history of CVA, residual left-sided weakness. PAST SURGICAL HISTORY: Total right knee replacement, bypass surgery, laparoscopic cholecystectomy, prior cataract surgery. ALLERGIES: The patient is allergic to: 1. PENICILLIN. 2. DOXYCYCLINE. MEDICATION: Home medication includes: 1. Warfarin. 2. Simvastatin 40 mg. 3. Quetiapine 25 mg half to one tablet q.h.s. p.r.n. 4. Insulin. 5. Lisinopril 2.5 mg daily. 6. Atenolol 12.5 mg daily. 7. Albuterol inhaler. 8. Hydrocodone and acetaminophen tablet as needed. SOCIAL HISTORY: Denies any current tobacco abuse or alcohol abuse. FAMILY HISTORY: Noncontributory. REVIEW OF SYSTEMS: Ten-point review of systems was obtained and negative except as stated above. PHYSICAL EXAMINATION: Blood pressure 118/76, pulse 72, irregular, respiratory rate 18, oxygen saturation room air 97%. HEENT: No significant anemia. Neck: Positive hepatojugular reflux. Chest: Bilateral decreased air entry and some rhonchi. CVS: S1 variable, P2 appears prominent. Very soft ejection systolic murmur at the base. No S3, no S4. Abdomen: Obese. Unable to palpate liver or spleen. Extremities: The patient has significant left lower extremity swelling extending all the way to the thigh, as well as 1 to 2+ right lower extremity edema. DISTRICT OPERATIONS MANAGER: Patient is conscious, able to talk and able to move all his extremities. Vascular: At present, no evidence of critical limb ischemia. Vascular: No evidence of critical limb ischemia. On EKG, the patient has chronic AFib with controlled ventricular rate with some nonspecific ST-T changes. I am not seeing any new significant ST-T changes from the old EKG. Low-voltage complexes seen as well. Echocardiographic finding as stated above. LABORATORIES: WBC 5.4, hemoglobin 12.7, platelets 117. Polymorphs 54.6. Sodium 143, potassium 4.0, BUN 25, creatinine 1.12. Troponin T 0.30, 0.33, 0.032. Patient has chronically elevated troponin. In August 2014, it was about 0.015. Triglyceride 95, total cholesterol 166, LDL 112, HDL 35. X-ray chest yesterday revealed persistent small bilateral pleural effusion with medial right basilar atelectasis or consolidation. Heart size at upper limits of normal. The patient had carotid Doppler in July 2014. At that time, there was less than 50% bilateral internal carotid artery disease. In December 2011, perfusion study revealed probably normal myocardial perfusion. LV ejection fraction was 63%. ASSESSMENT/PLAN: Episode of chest pain which appears to be atypical. According to the patient, it was different pain. It was not a kind of pain which he had at the time of bypass surgery. On surface EKG, I am not seeing any new ST-T changes. On 2D echo, LV ejection fraction 60% to 65% without any significant focal wall motion abnormalities. The patient has worsening right ventricular dysfunction with RV dilatation as well as pulmonary hypertension. Clinically, it appears to be that patient has cor pulmonale. The patient is obese. He may have underlying sleep apnea as well as COPD which is causing secondary pulmonary hypertension. He does not have any significant critical mitral valve pathology. Upon close evaluation of aortic valve, aortic stenosis does not appear to be critical. Overall LV systolic function is preserved. When he came his INR was 1.94 and today 2.18. His troponin elevation could be due to RV dysfunction. The patient has known history of coronary artery disease, status post three-vessel bypass surgery in January 2008. IN 2011 perfusion study did not reveal any obvious ischemia infarction. The patient has significant comorbidity. At home, he is fully dependent upon caregiver to perform day-to-day activities. Discussed with the patient, his , as well as the caregiver. At this point of time, they agree to be treated medically. He is not a candidate for aggressive cardiac workup. At this point of time, will recommend treating medically. It is reasonable to rule out pulmonary embolism as INR was subtherapeutic. Meanwhile, I will recommend putting him on diuretic as well as tolerable dose of beta niru for AFib rate control, continuation of anticoagulation with target INR between 2 and 3, high intensity statin, and MINOO inhibitor. I discussed the plan with our hospitalist team as well. Follow up as an outpatient with Dr. Park. As far as coronary artery disease is concerned we will recommend medical management. The patient and his and caregiver understood. Thanks for the Cardiology consult. Total time spent today including reviewing old records about 80 minutes. Feel free to call us if need any further assistance. RICARDO
[2017-06-20] MEDS: Insulin Human NPH 100 Unit/mL 3 mL Inj SUBQ SCH (17:04)
--- NOTE | 2017-06-20 17:17 | NUR ---
Social Work: Initial Assessment Data: Pt is an 86 y/o male admitted for chest pain, elevated trop. EMR reviewed. Pt discussed in multidisciplinary rounds. MD states pt will d/c pending cardiology. Pt's PCP is Dr Thao, pt's insurance is Medicare with [employer] supp. SECURITY ARCHITECT met with pt at bedside, role explained. Pt states he lives alone and has a caregiver every day of the week. Pt uses an electric wheel chair at baseline, has no hx of HH or SNF, no LTC or VA benefits, and is not a caregiver. Pt states his daughter is a good support to contact if needed, Kiya Mooney, . SECURITY ARCHITECT will continue to follow for possible d/c needs. Assessment: Pt with caregiving at baseline, currently not capable of self care at this time. Plan: Pt will likely d/c home when medically stable, SECURITY ARCHITECT will continue to follow for possible d/c needs. JAKE Rowan Addendum: 06/20/17 at 1720 by DARWIN FUENTES Amended: Links added.
[2017-06-20] MEDS: Albuterol-Ipratropium 3 mL Inhalation Solution NEB PRN (20:33)
--- NOTE | 2017-06-20 21:24 | NUR ---
Pt LISA for CT on bed at 212
--- NOTE | 2017-06-20 21:58 | DRSVH ---
PROCEDURE: CT ANGIO CHEST PULMONARY EMBOLISM ([id number]) INDICATIONS: Chest pain TECHNIQUE: After the administration of intravenous contrast, 2 mm thick sections acquired from the pulmonary api regina to the posterior costophrenic angles. 3-dimensional maximum intensity projection (MIP) coronal a nd sagittal reformats were then acquired through the thorax. For radiation dose reduction, the follo wing was used: automated exposure control, adjustment of mA and/or kV according to patient size. COMPARISON: [facility], CT, CT ABD PELVIS W CON, 09/28/2015, 0:17. FINDINGS: Image quality: Excellent. Pulmonary arteries: Filling defect is present within the distal aspect of the left main pulmonary art austen (series 5, images 59-53). It is unclear whether this represents an intraluminal filling defect or in extravascular mass depressing the wall of the artery. There are no other filling defects to sugge st acute pulmonary embolus. Lungs and pleura: There are moderate-sized bilateral pleural effusions. Compressive atelectasis or ba silar consolidation is present bilaterally. No pneumothorax. Mediastinum: Heart size is enlarged, without pericardial effusion. There are coronary artery calcifi cations. No mediastinal or hilar adenopathy. Thoracic aorta is normal in caliber and enhancement. Sc attered atheromatous calcifications are present within the aortic arch. Esophagus is normal in calibe r. There is a moderate-sized hiatal hernia. Bones and chest wall: Patient is status post median sternotomy. No suspicious bony lesions. Ribs an d thoracic spine appear intact throughout. Thyroid gland is unremarkable. No axillary or supraclavi cular adenopathy. Abdomen: Visualized upper abdominal solid organs appear normal in the early arterial phase of enhanc ement. IMPRESSION: 1. Findings suspicious for small pulmonary embolus in the left main pulmonary trunk as described abov e. There is no occlusive embolus within the downstream segmental or subsegmental branches. 2. Moderate bilateral low density pleural effusions and basilar consolidation or atelectasis. These findings were discussed with Dr. Wade at 9:55 PM on 06/20/17. 3. Moderate hiatal hernia. Dictated by: Ness Lenz M.D. on 06/20/2017 at 21:38 Approved by: Ness Lenz M.D. on 06/20/2017 at 21:56
[2017-06-20] MEDS: Furosemide 10 mg/mL 4 mL Inj IVPUSH SCH (22:23)
--- NOTE | 2017-06-20 23:21 | NUR ---
CT result: PE Dr. Wade called RN around [address] small PE, result informed to MD by CT staff. No need Heparin drip, no order change per MD. Pt was given Warfarin in day shift, INR therapeutic.
[2017-06-21] VITALS (10 sets, daily range): BP systolic 93–129; BP diastolic 56–77; PULSE 57–79; RESP 18–24; O2SAT 91–96
[2017-06-21 06:33] LABS: MONOCYTES % (AUTO) 8.7 % (4-12); Mean Corpuscular Hemoglobin 29.4 pg (27.0-35.0); Mean Corpuscular Volume 87.8 fL (81-100); NEUTROPHILS % (AUTO) 63.3 % (40-74); Platelet Count 133 bil/L (150-400)
[2017-06-21 06:34] LABS: BASOPHILS % (AUTO) 0.2 % (0-3); EOSINOPHILS % (AUTO) 2.6 % (0-5)
[2017-06-21 06:45] LABS: INR 1.95 ratio
--- NOTE | 2017-06-21 07:14 | NUR ---
Respiration Pt appears some SOB at rest, not acute distress. Cough sometimes, small white or yellowish sputum, hemoptysis. Decreased sonido sounds bilaterally, coarse at left LL posterior, no crackles or wheezes noted. Declines prn NEB when offered. VSS, SPO2 90-96% on RA. TELE: A-fib 80s-50s. 1+pitting edema at bilateral LEs, left> right, elevated on pillow. denies chest pain or pressure. Continue monitoring.
[2017-06-21] MEDS: Insulin LISPRO 300 Unit/3 mL Inj SUBQ SCH ×4 (08:00→22:00)
[2017-06-21] MEDS ORDERED: MeTOProlol XL 25 mg ER24 Tablet PO SCH (08:30)
[2017-06-21] MEDS: Furosemide 10 mg/mL 4 mL Inj IVPUSH SCH (09:03)
[2017-06-21] MEDS: MeTOProlol XL 25 mg ER24 Tablet PO SCH (09:04)
--- NOTE | 2017-06-21 09:31 | PCM.PHAPRO ---
Progress Date of Service: Jun 21, 2017 Chest pain warfarin dosing 4-Jun 21-Jun 2.18 1.95 -0.23 5 MG 5MG Norm Thompson [facility] Jun 21, 2017 09:31
[2017-06-21] MEDS: Insulin Human NPH 100 Unit/mL 3 mL Inj SUBQ SCH ×2 (10:12→17:45)
--- NOTE | 2017-06-21 11:20 | PCM.PNMED ---
Subjective Date of Service Jun 21, 2017 Subjective Resting in bed, says he still feels very tired. The edema noted is better, almost back to base line, patient is on IV lasix. CTa positive for an acute PE which explains patient laboratory findings. Exam Vital Signs Vital Sign - Last Date Time Temp Pulse Resp B/P Pulse Ox O2 Delivery O2 Flow Rate FiO2 06/21/17 09:29 36.7 65 18 104/60 93 Room Air Intake and Output 06/20/17 06/20/17 06/21/17 Cumulative From/Thru 15:00 23:00 07:00 06/19/17 13:12 - 06/21/17 05:13 Intake Total 236 ml 300 ml 745 ml Output Total 225 ml 1500 ml 1750 ml 3775 ml Balance -225 ml -1264 ml -1450 ml -3030 ml Intake Oral 236 ml 300 ml 536 ml IV Total 209 ml Output Urine Total 225 ml 400 ml 1550 ml 2475 ml Stool Total 1100 ml 200 ml 1300 ml # Voids 3 4 Exam Eyes; quynh eom intact HENT; adequate hydration no lesions CV; irregular, 70's Resp; clear anteriorly GI; soft non acute, non tender Skinl; no rash, dry and warm Neuro; 2-12 intact, hard of hearing, mild hemiparasis Lab and Diagnostics Result Diagram: 06/21/17 0555 06/20/17 1731 Assessment & Plan Acute Pulmonary embolism, poa, improving -with acute cor pulmonale -INR 1.9 on admit, CTA positive for PE acute -add lovenox until INR is theraputic -continue ASA but reduce to 81 mg Afib /Aflutter - on warfarin at home - INR 1.9 here - cardiology recommends changing tenormin to toprol xl 25 daily Lower extremity swelling - L > R - compression stockings in place -improving change IV to PO lasix at 20 AM discharge on same Diabetes - on insulin at home - will continue home insulin with correction scle scale - A1C = 7.3 Chronic Bronchitis (COPD) - as per tube room cashier, gets neb treatment 1 -2 times a day, and uses escape inhaler once a day - continue nebs and albuterol inhaler HTN - as per caregiver, he usually runs low at home - will monitor bp here, and adjust medications accordingly -cardiology recommends changing tenormin to toprol xl Chronic problems Hyperlipidemia. Excess weight. Hard of hearing. 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 Left frontal lobe meningioma. History of left leg DVT in June 2013. History of basal cell cancers of the face. History of poor dentition Disposition; -live at home with and caregivers VTE Prophylaxis: Other (on heparin drip ) VTE Mechanical Devices: Intermittant Pneumatic CD, Anti-Embolic stockings Trevor Yap MD Jun 21, 2017 11:20 VTE Prophylaxis: Other (on heparin drip ) VTE Mechanical Devices: Intermittant Pneumatic CD, Anti-Embolic stockings Trevor Yap MD Jun 21, 2017 11:20
[2017-06-22] VITALS (10 sets, daily range): BP systolic 100–122; BP diastolic 57–79; PULSE 58–80; RESP 19–24; O2SAT 93–96
[2017-06-22] MEDS: Albuterol-Ipratropium 3 mL Inhalation Solution NEB PRN (05:24)
--- NOTE | 2017-06-22 05:52 | NUR ---
NOC activity Pt has been alert and oriented. Pleasant and cooperative with care. Denies chest pain, sob, n/v or abd discomfort. Telemetry monitoring noted SR 71. VSS and has been afebrile overnight.
[2017-06-22 06:17] LABS: INR 1.85 ratio
[2017-06-22] MEDS: Insulin LISPRO 300 Unit/3 mL Inj SUBQ SCH ×4 (07:36→22:00)
[2017-06-22] MEDS: MeTOProlol XL 25 mg ER24 Tablet PO SCH (08:13)
[2017-06-22] MEDS: Insulin Human NPH 100 Unit/mL 3 mL Inj SUBQ SCH (08:15)
--- NOTE | 2017-06-22 08:18 | PCM.PHAPRO ---
Progress Date of Service: Jun 22, 2017 Requesting Provider: Jarred Fatima MD Chest pain warfarin dosing AFib on enox 1mg/kg sq q12h -Jun 5-Jun 22-Jun 2.18 1.95 1.85 -0.23 -0.1 5 MG 5MG 6MG Norm Thompson [facility] Jun 22, 2017 08:18
--- NOTE | 2017-06-22 11:46 | NUR ---
Social Work- Readiness for D/C Data: EMR reviewed. Pt discussed in multidisciplinary rounds. Pt is on day 3 of hospitalization for chest pain, elevated troponin per H&P. Pt is likely to d/c today. NIGEL discussed HH with MD in rounds, MD denies HH necessary at d/c. Pt has a caregiver every day of the week. Pt uses an electric wheel chair at baseline. SW will contact daughter at d/c, Kiya Vinicio, . WEATHER OBSERVER will continue to follow for possible d/c needs. Discharge orders not active at this time. Assessment: Pt with caregiving at baseline, currently not capable of self care at this time. Plan: Pt to d/c home with caregiver. Daughter to be updated at d/c. SW will continue to follow. JAKE Moreno
--- NOTE | 2017-06-22 11:49 | PCM.PNMED ---
Subjective Date of Service Jun 22, 2017 Subjective No new problems noted overnight. INR still subtheraputic. Main caregiver here she was updated. Exam Vital Signs Vital Sign - Last Date Time Temp Pulse Resp B/P Pulse Ox O2 Delivery O2 Flow Rate FiO2 06/22/17 10:48 58 06/22/17 08:49 36.7 21 108/65 96 Room Air Intake and Output 06/21/17 06/21/17 06/22/17 Cumulative From/Thru 15:00 23:00 07:00 06/19/17 13:12 - 06/22/17 06:22 Intake Total 236 ml 300 ml 1281 ml Output Total 2525 ml 550 ml 6850 ml Balance -2289 ml -250 ml -5569 ml Intake Oral 236 ml 300 ml 1072 ml IV Total 209 ml Output Urine Total 2525 ml 550 ml 5550 ml Stool Total 1300 ml # Voids 4 # Bowel Movements 0 0 Exam Eyes; quynh eom intact HENT; adequate hydration no lesions CV; irregular, 70's. no JVD Resp; clear GI; soft non acute, non tender Skinl; no rash, dry and warm Neuro; 2-12 intact, hard of hearing, mild hemiparasis Lab and Diagnostics Result Diagram: 06/21/17 0555 06/20/17 1737 Assessment & Plan Acute Pulmonary embolism, poa, improving -with acute cor pulmonale -INR 1.9 on admit, CTA positive for PE acute -add lovenox until INR is theraputic -1.85 today, pharmacy increased coumadin from 5 to 6mg q pm but will get the first increased dose this evening -continue ASA but reduce to 81 mg Afib /Aflutter - on warfarin at home - INR 1.9 here - cardiology recommends changing tenormin to toprol xl 25 daily Lower extremity swelling - L > R - compression stockings in place -improving change IV to PO lasix at 20 AM discharge on same Diabetes - on insulin at home - will continue home insulin with correction scle scale - A1C = 7.3 Chronic Bronchitis (COPD) - as per sanitarian aide, gets neb treatment 1 -2 times a day, and uses escape inhaler once a day - continue nebs and albuterol inhaler HTN - as per caregiver, he usually runs low at home - will monitor bp here, and adjust medications accordingly -cardiology recommends changing tenormin to toprol xl Chronic problems Hyperlipidemia. Excess weight. Hard of hearing. 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 Left frontal lobe meningioma. History of left leg DVT in June 2013. History of basal cell cancers of the face. History of poor dentition Disposition; -live at home with and caregivers -electric wheel chair VTE Prophylaxis: Other (on heparin drip ) VTE Mechanical Devices: Intermittant Pneumatic CD, Anti-Embolic stockings Trevor Yap MD Jun 22, 2017 11:49
--- NOTE | 2017-06-22 12:38 | NUR ---
Behavior/Returned Call to Family: While in a neighboring room, heard patient yelling "hey I need some help in here." When entered room, found food, two cups, a milk carton and some additional garbage on floor by the door. When asked what happened he explained that he needed help with tray and "got mad" because no one came to room when he yelled. Explained that when we are in other patient rooms we cannot always come immediately and would like for him to be patient until we can get there. Call-light was within reach and he was asked to use call-light instead of yelling when needing assistance. Patient did not seem to be satisfied with request and continued to threaten to throw things on the floor and stated "just wait until I throw this coffee against the wall." Told patient that he will not throw any additional items on floor and asked if he throws things against the wall or on floor at home when he gets angry. Patient would not answer. radio artist present during discussion with patient. Returned call to daughter, Sarah, with patients permission. Answered questions regarding care and plan. Discussed this am's behavioral issue with daughter.
--- NOTE | 2017-06-22 15:31 | NUR ---
BETY signed. Lian Vanegas ASSISTANT PASSENGER LOCOMOTIVE ENGINEER
--- NOTE | 2017-06-22 16:22 | PROG NOTE ---
[address] [address] PROGRESS NOTE PATIENT: ROBINSON ROSAS : 1930 MR#: [id number] ADMIT: 06/19/2017 JOB ID: [id number] DATE: 06/22/2017 SUBJECTIVE: The patient is feeling much better. Lower extremity swelling is better. Breathing is better. No more chest pain. OBJECTIVE: Blood pressure 100/57, heart rate 65, irregular, respiratory rate 24, oxygen saturation on room air 96%. Neck: No apparent JVD at present. Chest: Decreased air entry at the bases. CVS: S1 variable. No S3, no S4. No new murmur. Abdomen: Obese. Extremities: Bilateral lower extremity swelling. Getting better. Left more than right. Vascular: No evidence of critical limb ischemia. RETORT ENGINEER: Alert, oriented to time, place, and person. TELEMETRY: AFib with controlled ventricular rate and some PVCs without any obvious ventricular tachycardia. INR 1.85 yesterday. Hemoglobin 13.3, platelets 133. Sodium 142, potassium 4.2, BUN 24, creatinine 1.14. ASSESSMENT/PLAN: Atypical chest pain with abnormal troponin in the setting of pulmonary embolism. Right ventricular dysfunction likely due to pulmonary embolism. The patient also has cor pulmonale which appears to be multifactorial. On 2D echo, LV ejection fraction 60% to 65% and right ventricle function moderate to severely reduced with pulmonary artery systolic pressure about 46 mmHg, with mild to moderate MR, mild to moderate TR. Aortic valve does not appear to be critical. The patient also has history of coronary artery disease, status post bypass surgery, three vessels, in January 2008. He has chronic AFib. He was on anticoagulation but his INR was subtherapeutic. Since the patient started on diuretic overall lower extremity swelling is getting better. Yesterday negative balance was 3739. Today, so far 250. He is tolerating Toprol-XL 12.5 mg daily as well as small dose of MINOO inhibitor. He is on high intensity statin along with Lasix. Consider Lovenox until INR becomes therapeutic. From Cardiology's perspective, at this point of time, will sign off. The patient to follow up with his regular bowling alley floors installer, Dr. Park, as an outpatient. Discussed the plan with the caregiver and his . Total time spent today about 35 minutes.
[2017-06-22] MEDS: Insulin Human NPH 100 Unit/mL Syringe SUBQ SCH (21:45)
[2017-06-23 00:35] VITALS: BP 109/67; PULSE 69; RESP 22; O2SAT 95
--- NOTE | 2017-06-23 04:52 | NUR ---
NOC activity Pt has been pleasant and cooperative with care. Denies chest pain. Denies sob, but noted expiratory wheezes upon auscultation on bilateral upper lobe. Breathing Tx provided by RT PRN. Q2 turning provided.
[2017-06-23 06:19] LABS: Mean Corpuscular Volume 88 fL (81-100)
[2017-06-23 06:20] LABS: BASOPHILS % (AUTO) 0.2 % (0-3); EOSINOPHILS % (AUTO) 3.4 % (0-5); MONOCYTES % (AUTO) 9.6 % (4-12); NEUTROPHILS % (AUTO) 58.7 % (40-74); Platelet Count 137 bil/L (150-400)
[2017-06-23 06:28] LABS: INR 2.01 ratio
[2017-06-23 06:31] VITALS: BP 121/76; PULSE 62; RESP 13; O2SAT 95
[2017-06-23] MEDS: Insulin LISPRO 300 Unit/3 mL Inj SUBQ SCH ×2 (08:00→11:44)
[2017-06-23 09:00] VITALS: BP 140/83; PULSE 89; RESP 16; O2SAT 96
[2017-06-23 09:04] VITALS: PULSE 80
[2017-06-23] MEDS: MeTOProlol XL 25 mg ER24 Tablet PO SCH (09:31)
[2017-06-23] MEDS: Insulin Human NPH 100 Unit/mL Syringe SUBQ SCH (09:33)
--- NOTE | 2017-06-23 11:28 | PCM.PHAPRO ---
Progress Date of Service: Jun 23, 2017 Warfarin dosing Date Jun 21-Jun 22-Jun 23-Jun INR 2.18 1.95 1.85 2.01 INR change -0.23 -0.1 0.16 Warf Dose 5 MG 5MG 6MG 5MG Estrella Moreno PharmD Jun 23, 2017 11:28
[2017-06-23 12:35] VITALS: BP 108/63; PULSE 75; RESP 24; O2SAT 95
--- NOTE | 2017-06-23 12:59 | PCM.DIMED ---
Discharge Instructions Date of Service Jun 23, 2017 Dates of Hospitalization Jun 19, 2017 at 15:46 Discharge Diagnosis Discharge Diagnosis Acute Pulmonary embolism with subtheraputic INR Afib /Aflutter Lower extremity swelling Diabetes Chronic Bronchitis (COPD) HTN Hyperlipidemia. Excess weight. Hard of hearing. 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 Left frontal lobe meningioma. History of left leg DVT in June 2013. History of basal cell cancers of the face. History of poor dentition Diet Discharge Diet: Heart Healthy, Diabetic Activity Discharge Activity: No restrictions Patient Instructions Follow-up plan Follow up with your primary care provide in the near future, I will send records to him. Patient must get his "ProTime INR" tested at the end of the week to adjust the warfarin (Coumadin), or at the latest next Friday. Follow-up with PCP in: 1 week Trevor Yap MD Jun 23, 2017 12:59
--- NOTE | 2017-06-23 13:05 | PCM.DC.MED ---
Discharge Summary Date of Service Jun 23, 2017 Dates of Hospitalization Date of Hospital Admission Jun 19, 2017 at 15:46 Date of Discharge: Jun 23, 2017 Providers: Admitting Physician: Ray Gandhi MD Primary Care Physician: Robel Manley MD Attending Physician: Trevor Yap MD Diagnosis at Time of Discharge Diagnosis at Time of Discharge Acute Pulmonary embolism with subtheraputic INR, poa, improving Afib /Aflutter, poa stable Lower extremity swelling, poa, improved Diabetes, poa, stable Chronic Bronchitis (COPD), poa, stable HTN, poa stable Chronic problems Hyperlipidemia. Excess weight. Hard of hearing. 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 Left frontal lobe meningioma. History of left leg DVT in June 2013. History of basal cell cancers of the face. History of poor dentition Procedures XRay, CTs & MRIs PROCEDURE: CT ANGIO CHEST PULMONARY EMBOLISM ([id number]) INDICATIONS: Chest pain COMPARISON: [facility], CT, CT ABD PELVIS W CON, 09/28/2015, 0:17. FINDINGS: Image quality: Excellent. Pulmonary arteries: Filling defect is present within the distal aspect of the left main pulmonary artery (series 5, images 59-53). It is unclear whether this represents an intraluminal filling defect or in extravascular mass depressing the wall of the artery. There are no other filling defects to suggest acute pulmonary embolus. Lungs and pleura: There are moderate-sized bilateral pleural effusions. Compressive atelectasis or basilar consolidation is present bilaterally. No pneumothorax. Mediastinum: Heart size is enlarged, without pericardial effusion. There are coronary artery calcifications. No mediastinal or hilar adenopathy. Thoracic aorta is normal in caliber and enhancement. Scattered atheromatous calcifications are present within the aortic arch. Esophagus is normal in caliber. There is a moderate-sized hiatal hernia. Bones and chest wall: Patient is status post median sternotomy. No suspicious bony lesions. Ribs and thoracic spine appear intact throughout. Thyroid gland is unremarkable. No axillary or supraclavicular adenopathy. Abdomen: Visualized upper abdominal solid organs appear normal in the early arterial phase of enhancement. IMPRESSION: 1. Findings suspicious for small pulmonary embolus in the left main pulmonary trunk as described above. There is no occlusive embolus within the downstream segmental or subsegmental branches. 2. Moderate bilateral low density pleural effusions and basilar consolidation or atelectasis. These findings were discussed with Dr. Wade at 9:55 PM on 06/20/17. 3. Moderate hiatal hernia. Dictated by: Ness Lenz M.D. on 06/20/2017 at 21:38 Cardiac Echo Impression Echocardiogram Report Name: ROBINSON ROSAS te: 06/20/2017 Height: 72 in Hospital Exam Location: [facility] Weight: 268 lb Gender: Male BSA: 2.4 m2 : 1930 Age: 86 yrs BP: 116/72 mmHg Reason For Study: Chest pain History: CAD Ordering Physician: HOSPITALIST [facility] Performed By: Joyce Bobo Referring Physician: Dr. Robel Manley Interpretation Summary The left ventricle is normal in size. The ejection fraction is estimated to be 60-65%. The right ventricle is mildly dilated. Right ventricular systolic function is moderate to severely reduced.Right ventricular systolic function has decreased since previous exam. There is mild to moderate tricuspid regurgitation. Compared to the prior echo exam, there has been an increase in TR severity. The right ventricular systolic pressure is estimated at 46 mmHg assuming a right atrial pressure of 15 mm Hg. Compared to the prior echo exam, there has been an increase in the severity of pulmonary hypertension. There is mild to moderate mitral regurgitation. Compared to the prior echo study, there has been an increase in the severity of mitral regurgitation. The aortic valve is not well visualized. Leaflet mobility is severely reduced. The peak aortic velocity is 1.5 m/sec. The peak aortic velocity on the previous exam was 1.37 m/sec (The peak AV velocity and mean gradient does not support severe however morphologically aortic valve cusps appears to have significantly reduced mobility). Consider ELA for better evaluation of AV. Brief History From ER, EMR and patient: Patient is a 86-year-old male with coronary artery disease, hypertension, diabetes mellitus, COPD, atrial fib/flutter with a previous DVT and stroke on warfarin who presents from his doctor's office after acute onset chest pain at rest this morning at approximately 11:15. He had left sided sharp pain that did not radiate to the left side of his chest he took 2 nitroglycerin tablets approximately 5 minutes apart after which his chest pain resolved. He had a similar episode approximately 2 months ago that also resolved with 2 nitroglycerin. He did not go to the emergency department at that time. He has had no associated shortness of breath, or headache. His caregiver reports that he has been quite tired over the last few months and that he has had some bowel incontinence however no recent weight loss. When asked about previous history of CAD, he does not remember every having a cardiac cath. Denies any other symptoms at this time. . Hospital Course Acute Pulmonary embolism, poa, improving -with acute cor pulmonale -INR 1.9 on admit, CTA positive for PE acute (treated with bridging lovenox while here) -INR 2.1 today, plan is to increase Coumadin to 5 mg daily (was on 5, 5xweek and 2.5 2xweek) -Must get protime tested within the next few day to adjust coumadin Afib /Aflutter - on warfarin at home - INR 1.9 here - cardiology recommends changing tenormin to toprol xl 25 daily Lower extremity swelling - L > R - compression stockings in place -improving change IV to PO lasix at 20 AM discharge on same Diabetes - on insulin at home - will continue home insulin with correction scle scale - A1C = 7.3 Chronic Bronchitis (COPD) - as per billing control clerk, gets neb treatment 1 -2 times a day, and uses escape inhaler once a day - continue nebs and albuterol inhaler HTN - as per caregiver, he usually runs low at home - will monitor bp here, and adjust medications accordingly -cardiology recommends changing tenormin to toprol xl Chronic problems Hyperlipidemia. Excess weight. Hard of hearing. 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 Left frontal lobe meningioma. History of left leg DVT in June 2013. History of basal cell cancers of the face. History of poor dentition Disposition; -live at home with and caregivers -electric wheel chair Exam Vital Signs (Last) Date Time Temp Pulse Resp B/P Pulse Ox O2 Delivery O2 Flow Rate FiO2 06/23/17 12:35 36.1 75 24 108/63 95 Room Air Exam Eyes; quynh eom intact HENT; adequate hydration no lesions CV; irregular, 70's. no JVD Resp; clear GI; soft non acute, non tender Skinl; no rash, dry and warm Neuro; 2-12 intact, hard of hearing, mild hemiparasis Test 8/3/17 13:33 06/19/17 18:22 06/20/17 04:35 06/20/17 05:30 Total Bilirubin 0.4mg/dL (0.0-1.2) Aspartate Amino Transf (AST/SGOT) 19U/L (0-50) Alanine Aminotransferase (ALT/SGPT) 12U/L (0-44) Alkaline Phosphatase 111U/L (25-160) Total Protein 7.4g/dL (6.4-8.4) Albumin 3.8g/dL (3.4-5.0) Hold Urine Received (Received) Urine Color Yellow (YELLOW) Urine Appearance Clear (CLEAR,HAZY) Urine pH 5.0 (5.0-8.0) Urine Specific [place] 1.010 (1.003-1.035) Urine Protein Negativemg/dL (NEG,TRACE) Urine Glucose (UA) Negativemg/dL (NEGATIVE) Urine Ketones Negativemg/dL (NEGATIVE) Urine Occult Blood Negative (NEGATIVE) Urine Nitrite Negative (NEGATIVE) Urine Bilirubin Negative (NEGATIVE) Urine Urobilinogen Normalmg/dL (NORMAL) Urine Leukocyte Esterase Negative (NEGATIVE) Urine RBC 0-2/hpf (0-2) Urine WBC 0-5/hpf (0-5) Urine Epithelial Cells Occasional/hpf (NONE-MOD) Urine Crystals None seen (NONE SEEN) Urine Bacteria None/hpf (NONE-FEW) Urine Hyaline Casts None/lpf (NONE) Urine Granular Casts None seen (NONE SEEN) Urine Waxy Casts None seen (NONE SEEN) Urine Red Blood Cell Casts None seen (NONE SEEN) Urine White Blood Cell Casts None seen (NONE SEEN) Urine Mucus None seen (None Seen) Urine Trichomonas None seen (NONE SEEN) Urine Yeast None (NONE SEEN) Urinalysis Comment None Urine Culture Reflexed Not indicated Hemoglobin A1c 7.3% (4.8-5.6) Triglycerides Level 95mg/dL (0-149) Cholesterol Level 166mg/dL (100-199) LDL Cholesterol, Calculated 112.000mg/dL (0-99) VLDL Cholesterol 19.000mg/dL HDL Cholesterol 35mg/dL (>39) Cholesterol/HDL Ratio 4.74 (0.0-4.4) Test 06/20/17 12:25 8/4/17 15:35 06/21/17 05:55 06/23/17 05:35 Troponin T 0.032ug/L (0.0-0.011) Activated Partial Thromboplast Time 60.8sec (22.8-33.0) Pro-B-Type Natriuretic Peptide 3143pg/mL (0-486) White Blood Count 6.2th/mm3 (3.8-10.1) Red Blood Count 4.72mil/mm3 (4.40-5.80) Hemoglobin 13.7g/dL (13.8-17.2) Hematocrit 41.4% (41.0-50.0) Mean Corpuscular Volume 88fL (81-100) Mean Corpuscular Hemoglobin 29.0pg (27.0-35.0) Mean Corpuscular Hemoglobin Concent 33.1% (32.0-37.0) Red Cell Distribution Width 14.0% (12.3-15.4) Platelet Count 137bil/L (150-400) Neutrophils (%) (Auto) 58.7% (40-74) Lymphocytes (%) (Auto) 27.8% (14-46) Monocytes (%) (Auto) 9.6% (4-12) Eosinophils (%) (Auto) 3.4% (0-5) Basophils (%) (Auto) 0.2% (0-3) Prothrombin Time 21.8sec (8.1-12.5) Prothromb Time International Ratio 2.01ratio Sodium Level 144mEq/L (134-144) Potassium Level 3.7mEq/L (3.5-5.2) Chloride Level 102mEq/L (97-108) Carbon Dioxide Level 25mmol/L (18-29) Blood Urea Nitrogen 26mg/dL (8-27) Creatinine 1.16mg/dL (0.76-1.27) Estimat Glomerular Filtration Rate 63mL/min (>59) Glucose Level 64mg/dL (60-99) Calcium Level 8.5mg/dL (8.5-10.1) Magnesium Level 2.0mg/dL (1.6-2.6) Procalcitonin 0.05ng/mL (0.00-0.08) Discharge Medications Discharge Medications Albuterol/Ipratropium (Combivent Respimat Inhal [place]) 120 Spr/4 Gm Inhaler 1 PUFF IH BID (Reported) Atenolol (Atenolol) 25 Mg Tablet 12.5 MG PO DAILY (Reported) Lisinopril (Zestril) 5 Mg Tablet 2.5 MG PO DAILY Prescribed by: ROBEL MANLEY MD NPH, Human Insulin Isophane (HUMulin-N U100 Insulin Vial) 100 Unit/1 Ml Vial 28 UNIT SUBQ BID-INSULIN (Reported) Simvastatin (Simvastatin) 40 Mg Tablet 40 MG PO HS (Reported) Warfarin Sodium (Warfarin Sodium) 5 Mg Tablet 5 MG PO [place], Mo, We, Th, Sa ( Reported) Warfarin Sodium (Warfarin Sodium) 5 Mg Tablet 2.5 MG PO , (Reported) As needed Acetaminophen (Acetaminophen) 500 Mg Tablet 500 MG PO Q4H PRN PRN For Pain ( Reported) Albuterol Neb Soln (Albuterol Neb Soln) 2.5 Mg/3 Ml Vial.neb 2.5 MG IH Q4 PRN PRN For Shortness of Breath (Reported) Docusate Sodium (Colace) 100 Mg Capsule 100-200 MG PO BID PRN PRN For Constipation (Reported) Hydrocodone-Acetaminophen 5-325 mg (Hydrocodone-Acetaminophen 5-325 mg) 1 Each Tablet 1-2 EACH PO Q4 PRN PRN For Pain (Reported) Nitroglycerin SL (Nitrostat) 0.4 Mg Tab.subl 0.4 MG SL Q5MIN PRN PRN For Chest Pain (Reported) Quetiapine Fumarate (Quetiapine Fumarate) 25 Mg Tablet 0.5-1 TAB PO HS PRN PRN Insomnia (Reported) Followup Plan Follow-up plan Follow up with your primary care provide in the near future, I will send records to him. Patient must get his "ProTime INR" tested at the end of the week to adjust the warfarin (Coumadin), or at the latest next Friday. Discharge Diet: Heart Healthy, Diabetic Discharge Activity: No restrictions Follow-up with PCP in: 1 week Trevor Yap MD Jun 23, 2017 13:05
[2017-06-23] MEDS ORDERED: METO25TA3 PO (13:08)
[2017-06-23] MEDS ORDERED: WARF5TAB PO (13:08)
[2017-06-23] MEDS ORDERED: FURO-129 PO (13:08)
--- NOTE | 2017-06-23 13:42 | NUR ---
Social Work-discharge: Data:EMR reviewed. Pt is on day 4 of hospitalization for chest pain per H&P. Pt is medically stable for discharge. Pt has caregivers at home and uses a w/c at baseline. Pt's family has been updated and agreeable to plan. No discharge needs identified. All updated and agreeable to plan. Assessment:pt who is independent at baseline. Plan:Pt to discharge home today via POV. Pt has caregivers at home and uses a w/c at baseline. No discharge needs identified. All updated and agreeable to plan. JAKE Guzmán
--- NOTE | 2017-06-23 14:37 | NUR ---
Discharge: Patient discharged to home @ approx 1345. IV x2 d/c'd intact. MP30 removed, medical technologist prn notified. Personal belongings sent home with patient. Reviewed new prescriptions, home medications, discharge instructions and follow up appointments with caregiver. Verbalized understanding. Assisted patient to personal motorized chair with caregiver, additional RN and BODY MASKER. Escorted to main entrance via motorized chair accompanied by BODY MASKER and caregiver. No apparent distress noted at time of discharge.
== END 2017-06-23 13:56 | disposition home or self-care (01) | DRG 175 ==
LOC: SED 13:10 → MPC 15:46
PROVIDERS: ADMIT Internal Medicine; ATTEND Hospitalist
DX: I26.09 Other pulmonary embolism with acute cor pulmonale (principal); I48.92 Unspecified atrial flutter; I82.502 Chronic embolism and thrombosis of unspecified deep veins of left lower extremity; I69.354 Hemiplegia and hemiparesis following cerebral infarction affecting left non-dominant side; I25.10 Atherosclerotic heart disease of native coronary artery without angina pectoris; I10 Essential (primary) hypertension; E11.9 Type 2 diabetes mellitus without complications; J44.9 Chronic obstructive pulmonary disease, unspecified; I48.2 Chronic atrial fibrillation; E78.5 Hyperlipidemia, unspecified; Z66 Do not resuscitate; Z99.3 Dependence on wheelchair; Z79.01 Long term (current) use of anticoagulants; Z88.0 Allergy status to penicillin; Z79.4 Long term (current) use of insulin; Z79.51 Long term (current) use of inhaled steroids